=== PATIENT | male | born 1990 | race African-American/Black ===

== ENCOUNTER 2019-08-26 02:18 | Inpatient (IN) | payer BC ==
[~2019-08-26] VITALS: Ht 180.3 cm; Wt 99.8 kg
[2019-08-26 02:36] LABS: BASO # 0.1 x10^3/uL (0.0-0.2); BASO % 0 % (0-3); EOS # 0.2 x10^3/uL (0.0-0.7); EOS % 1 % (0-3); HEMATOCRIT 40.6 % (39.0-53.0); HEMOGLOBIN 13.7 g/dL (13.0-17.5); LYMPH # 1.9 x10^3/uL (1.0-4.8); LYMPH % 8 % (24-48); MEAN CORPUSCULAR HEMOGLOBIN 30 pg (25-35); MEAN CORPUSCULAR HGB CONC 34 g/dL (31-37); MEAN CORPUSCULAR VOLUME 88 fL (79-100); MONO # 1.6 x10^3/uL (0.0-1.1); MONO % 7 % (0-9); NEUT # 18.8 x10^3/uL (1.8-7.7); NEUT % 84 % (31-73); PLATELET COUNT 266 x10^3/uL (140-400); RED BLOOD COUNT 4.62 x10^6/uL (4.30-5.70); RED CELL DISTRIBUTION WIDTH 13.1 % (11.5-14.5); WHITE BLOOD COUNT 22.5 x10^3/uL (4.0-11.0)
[2019-08-26] MEDS: IBUPROFEN 100 MG/5 ML ORAL.SUSP. PO ONE ×2 (02:55→03:32)
[2019-08-26 02:58] LABS: % BANDS 2 % (0-9); % LYMPHS 9 % (24-48); % MONOS 2 % (0-10); % SEGS 87 % (35-66); PLT ESTIMATE ADEQUATE (ADEQUATE); TOXIC GRANULATION SLIGHT; TOXIC VACUOLATION SLIGHT
[2019-08-26] MEDS ORDERED: cefTRIAXone IV Push 1 GM VIAL. IVP ONE (03:00)
[2019-08-26] MEDS ORDERED: diphenhydrAMINE 50 MG/ML VIAL IVP ONE (03:00)
[2019-08-26] MEDS ORDERED: methylPREDNISolone SOD SUCC PF 125 MG/2 ML VIAL. IV ONE (03:00)
[2019-08-26 03:18] LABS: INFLUENZA A PATIENT NEGATIVE (NEGATIVE); INFLUENZA B PATIENT NEGATIVE (NEGATIVE)
[2019-08-26 03:24] LABS: CALCIUM 9.2 mg/dL (8.5-10.1); CREATININE 1.1 mg/dL (0.7-1.3); GFR 95.8; POTASSIUM 3.9 mmol/L (3.5-5.1)
[2019-08-26 03:31] LABS: ALBUMIN 4.3 g/dL (3.4-5.0); DIRECT BILIRUBIN 0.2 mg/dL (0.0-0.2); TOTAL BILIRUBIN 0.6 mg/dL (0.2-1.0); TOTAL PROTEIN 7.9 g/dL (6.4-8.2)
[2019-08-26] MEDS ORDERED: KETOROLAC 30 MG/ML VIAL. IVP ONE (04:00)
[2019-08-26] MEDS ORDERED: LIDO:MAALOX 1:1 20 ML SINGLE DOSE. SWSW ONE (04:00)
[2019-08-26] MEDS ORDERED: IV NORMAL SALINE 1000ML BAG 1,000 ML IV ONE (04:00)
--- NOTE | 2019-08-26 04:42 | PHYS DOC ---
Past Medical History Past Medical History: No Pertinent History Past Surgical History: No Surgical History Alcohol Use: Occasionally Drug Use: None Adult General Chief Complaint Chief Complaint: SORE THROAT HPI HPI Patient is a 28-year-old male who presents with complaint of severe sore throat that started at about 10 PM. Patient states that he feels like his throat is closing up on him and he has been choking on a saliva. He indicates that he has had some vomiting as well. Patient does admit to feeling very anxious due to feeling like he is not able to breathe. Patient also is noted to have fever. He denies any abdominal pain.[] Review of Systems Review of Systems Constitutional: Positive fever and chills [] HENT: [place] of sore throat [] Respiratory: [place] of shortness of breath [] Cardiovascular: No additional information not addressed in HPI [] GI: Denies abdominal pain. Complains of nausea and vomiting without diarrhea [] Integument: Denies rash or skin lesions [] Neurologic: Denies headache, focal weakness or sensory changes [] All other systems were reviewed and found to be within normal limits, except as documented in this note. Current Medications Current Medications Current Medications Medications (Trade) Dose Ordered Sig/Vincent Start Time Stop Time Status Last Admin Dose Admin Ceftriaxone Sodium (Rocephin) 1 gm 1X ONCE 08/26/19 03:00 08/26/19 03:01 DC 08/26/19 02:57 1 GM Diphenhydramine HCl (Benadryl) 50 mg 1X ONCE 08/26/19 03:00 08/26/19 03:01 DC 08/26/19 02:56 50 MG Ibuprofen (Children'S Motrin) 600 mg 1X ONCE 08/26/19 03:00 08/26/19 03:01 DC Ketorolac Tromethamine (Toradol 30mg Vial) 30 mg 1X ONCE 08/26/19 04:00 08/26/19 04:01 DC 08/26/19 03:34 30 MG Lorazepam (Ativan Inj) 1 mg 1X ONCE 08/26/19 04:00 08/26/19 04:01 DC Methylprednisolone Sodium Succinate (SOLU-Medrol 125MG VIAL) 125 mg 1X ONCE 08/26/19 03:00 08/26/19 03:01 DC 08/26/19 02:55 125 MG Multi-Ingredient Mouthwash/Gargle (Gi Cocktail) 20 ml 1X ONCE 08/26/19 04:00 08/26/19 04:01 DC 08/26/19 03:33 20 ML Sodium Chloride 1,000 ml @ 1,000 mls/hr 1X ONCE 08/26/19 04:00 08/26/19 04:59 DC 08/26/19 04:02 1,000 MLS/HR Allergies Allergies Allergies Coded Allergies Type Severity Reaction Last Updated Verified No Known Drug Allergies 08/26/19 No Physical Exam Physical Exam Constitutional: Well developed, well nourished, non-toxic appearance. [] HENT: Normocephalic, atraumatic, bilateral external ears normal, with pharyngeal erythema but no exudates. [] Eyes: PERRLA, EOMI, conjunctiva normal, no discharge. [] Neck: Normal range of motion, no tenderness, supple, with anterior cervical ly mphadenopathy. [] Cardiovascular: Tachycardic rate with regular rhythm[] Lungs & Thorax: Bilateral breath sounds clear to auscultation [] Abdomen: Bowel sounds normal, soft, no tenderness. [] Skin: Warm, dry, no erythema, no rash. [] Extremities: No tenderness, no cyanosis, no clubbing, ROM intact, no edema. [] Neurologic: Alert and oriented X 3, no focal deficits noted. [] Psychologic: Severely anxious. [] Current Patient Data Vital Signs Vital Signs Date Time Temp Pulse Resp B/P (MAP) Pulse Ox O2 Delivery O2 Flow Rate FiO2 08/26/19 04:30 101 16 107/56 (73) 98 Room Air 08/26/19 04:00 98.3 98.3 Lab Values Laboratory Tests Test 08/26/19 02:30 08/26/19 02:48 08/26/19 03:07 08/26/19 04:43 White Blood Count 22.5 x10^3/uL (4.0-11.0) H Red Blood Count 4.62 x10^6/uL (4.30-5.70) Hemoglobin 13.7 g/dL (13.0-17.5) Hematocrit 40.6 % (39.0-53.0) Mean Corpuscular Volume 88 fL (79-100) Mean Corpuscular Hemoglobin 30 pg (25-35) Mean Corpuscular Hemoglobin Concent 34 g/dL (31-37) Red Cell Distribution Width 13.1 % (11.5-14.5) Platelet Count 266 x10^3/uL (140-400) Neutrophils (%) (Auto) 84 % (31-73) H Lymphocytes (%) (Auto) 8 % (24-48) L Monocytes (%) (Auto) 7 % (0-9) Eosinophils (%) (Auto) 1 % (0-3) Basophils (%) (Auto) 0 % (0-3) Neutrophils # (Auto) 18.8 x10^3/uL (1.8-7.7) H Lymphocytes # (Auto) 1.9 x10^3/uL (1.0-4.8) Monocytes # (Auto) 1.6 x10^3/uL (0.0-1.1) H Eosinophils # (Auto) 0.2 x10^3/uL (0.0-0.7) Basophils # (Auto) 0.1 x10^3/uL (0.0-0.2) Segmented Neutrophils % 87 % (35-66) H Band Neutrophils % 2 % (0-9) Lymphocytes % 9 % (24-48) L Monocytes % 2 % (0-10) Toxic Granulation Slight Toxic Vacuolation Slight Platelet Estimate Adequate (ADEQUATE) Influenza Type A Antigen Negative (NEGATIVE) Influenza Type B Antigen Negative (NEGATIVE) Sodium Level 140 mmol/L (136-145) Potassium Level 3.9 mmol/L (3.5-5.1) Chloride Level 103 mmol/L (98-107) Carbon Dioxide Level 27 mmol/L (21-32) Anion Gap 10 (6-14) Blood Urea Nitrogen 13 mg/dL (8-26) Creatinine 1.1 mg/dL (0.7-1.3) Estimated GFR (Cockcroft-Gault) 95.8 Glucose Level 114 mg/dL (70-99) H Calcium Level 9.2 mg/dL (8.5-10.1) Total Bilirubin 0.6 mg/dL (0.2-1.0) Direct Bilirubin 0.2 mg/dL (0.0-0.2) Aspartate Amino Transferase (AST) 20 U/L (15-37) Alanine Aminotransferase (ALT) 24 U/L (16-63) Alkaline Phosphatase 57 U/L (46-116) Total Protein 7.9 g/dL (6.4-8.2) Albumin 4.3 g/dL (3.4-5.0) Urine Collection Type Unknown Urine Color Yellow Urine Clarity Clear Urine pH 8.0 Urine Specific [place] 1.025 Urine Protein Negative mg/dL (NEG-TRACE) Urine Glucose (UA) Negative mg/dL (NEG) Urine Ketones (Stick) Negative mg/dL (NEG) Urine Blood Negative (NEG) Urine Nitrite Negative (NEG) Urine Bilirubin Negative (NEG) Urine Urobilinogen Dipstick 1.0 mg/dL (0.2 mg/dL) Urine Leukocyte Esterase Negative (NEG) Urine RBC 3-5 /HPF (0-2) Urine WBC 5-10 /HPF (0-4) Urine Squamous Epithelial Cells Few /LPF Urine Bacteria 0 /HPF (0-FEW) Urine Mucus Slight /LPF Laboratory Tests 08/26/19 02:30 Laboratory Tests 08/26/19 03:07 EKG EKG [] Radiology/Procedures Radiology/Procedures [] Course & Med Decision Making Course & Med Decision Making Pertinent Labs and Imaging studies reviewed. (See chart for details) [] Dragon Disclaimer Dragon Disclaimer This electronic medical record was generated, in whole or in part, using a voice recognition dictation system. Departure Departure Impression: Primary Impression: Fever Additional Impressions: Leukocytosis Tonsillitis Disposition: ADMITTED INPATIENT Admitting Physician: MIKEY (Dr Gibbons) Condition: IMPROVED Referrals: NO PCP (PCP) Problem Qualifiers Primary Impression: Fever Fever type: unspecified Qualified Codes: R50.9 - Fever, unspecified Additional Impressions: Leukocytosis Leukocytosis type: unspecified Qualified Codes: D72.829 - Elevated white blood cell count, unspecified KEVIN CARABALLO Jr. DO Aug 26, 2019 04:42
[2019-08-26 04:50] LABS: BILIRUBIN,URINE NEGATIVE (NEG); CLARITY,URINE CLEAR; COLOR,URINE YELLOW; NITRITE,URINE NEGATIVE (NEG); PROTEIN,URINE NEGATIVE (NEG-TRACE)
[2019-08-26 04:57] LABS: SQUAMOUS EPITHELIAL CELL,UR FEW /LPF
--- NOTE | 2019-08-26 04:57 | RAD ---
CHEST AP ONLY History: Fever Comparison: None. Findings: No consolidation or pleural effusion. Normal heart size. Impression: 1. No acute cardiopulmonary process. Electronically signed by: Darryl Callejas DO (08/26/2019 4:54 AM) [facility]
[2019-08-26 05:00] LABS: BACTERIA,URINE 0 /HPF (0-FEW)
[2019-08-26] MEDS ORDERED: ONDANSETRON PF 4 MG/2 ML VIAL. IV PRN (05:45)
[2019-08-26] MEDS ORDERED: ACETAMINOPHEN 325 MG TABLET. PO PRN (05:45)
[2019-08-26] MEDS: IV NORMAL SALINE 1000ML BAG 1,000 ML IV SCH ×3 (06:00→23:18)
[2019-08-26 07:00] VITALS: BP 129/57
--- NOTE | 2019-08-26 08:49 | PDOC1 ---
History and Physical Date of Admission Date of Admission DATE: 08/26/19 TIME: 08:49 Identification/Chief Complaint Chief Complaint Sore throat Source Source: Patient History of Present Illness History of Present Illness Mr Nance 28 yo male with no PMHx who presents with complaint of severe sore throat that started at about 10 PM. Patient states that he feels like his throat is closing up on him and he has been choking on a saliva. He indicates that he has had some vomiting as well and has had some hemoptysis. Patient does admit to feeling very anxious due to feeling like he is not able to breathe and cannot even swallow liquids. Patient also is noted to have fever. He denies any abdominal pain. He has 3 young children at home, works for the [employer], some sick contacts at work. He smokes a bit, drinks little, and occasionally uses MJ, but does not vape. His significant other notes he has vocal changes as well. CXR was clear in ED, however had fever 102.4F, HR 117, WBC of 22.5 and RR of 2 6/min. He improved only slightly after steroid administration and was called for admission for further treatment. Past Medical History Cardiovascular: No pertinent hx Pulmonary: No pertinent hx GI: No pertinent hx Heme/Onc: No pertinent hx Hepatobiliary: No pertinent hx Psych: No pertinent hx Rheumatologic: No pertinent hx Infectious disease: No pertinent hx ENT: No pertinent hx Renal/: No pertinent hx Endocrine: No pertinent hx Dermatology: No pertinent hx Past Surgical History Past Surgical History: No pertinent history Family History Family History: Hypertension Social History Smoke: <1 pack per day ALCOHOL: rare Drugs: Marijuana Current Problem List Problem List Problems Medical Problems: (1) Fever Status: Acute (2) Leukocytosis Status: Acute (3) Tonsillitis Status: Acute Current Medications Current Medications Current Medications Diphenhydramine HCl (Benadryl) 50 mg 1X ONCE IVP Last administered on 08/26/19at 02:56; Start 08/26/19 at 03:00; Stop 08/26/19 at 03:01; Status DC Methylprednisolone Sodium Succinate (SOLU-Medrol 125MG VIAL) 125 mg 1X ONCE IV Last administered on 08/26/19at 02:55; Start 08/26/19 at 03:00; Stop 08/26/19 at 03:01; Status DC Lorazepam (Ativan Inj) 1 mg 1X ONCE IVP Last administered on 08/26/19at 02:56; Start 08/26/19 at 03:00; Stop 08/26/19 at 03:01; Status DC Ceftriaxone Sodium (Rocephin) 1 gm 1X ONCE IVP Last administered on 08/26/19at 02:57; Start 08/26/19 at 03:00; Stop 08/26/19 at 03:01; Status DC Ibuprofen (Children'S Motrin) 600 mg 1X ONCE PO ; Start 08/26/19 at 03:00; Stop 08/26/19 at 03:01; Status DC Ketorolac Tromethamine (Toradol 30mg Vial) 30 mg 1X ONCE IVP Last administered on 08/26/19at 03:34; Start 08/26/19 at 04:00; Stop 08/26/19 at 04:01; Status DC Multi-Ingredient Mouthwash/Gargle (Gi Cocktail) 20 ml 1X ONCE SWSW Last administered on 08/26/19at 03:33; Start 08/26/19 at 04:00; Stop 08/26/19 at 04:01; Status DC Sodium Chloride 1,000 ml @ 1,000 mls/hr 1X ONCE IV Last administered on 08/26/19at 04:02; Start 08/26/19 at 04:00; Stop 08/26/19 at 04:59; Status DC Lorazepam (Ativan Inj) 1 mg 1X ONCE IVP ; Start 08/26/19 at 04:00; Stop 08/26/19 at 04:01; Status DC Ondansetron HCl (Zofran) 4 mg PRN Q8HRS PRN IV NAUSEA/VOMITING 1ST CHOICE; Start 08/26/19 at 05:45; Stop 08/27/19 at 05:44 Morphine Sulfate (Morphine Sulfate) 2 mg PRN Q2HR PRN IV SEVERE PAIN 7-10; Start 08/26/19 at 05:45; Stop 08/27/19 at 05:44 Sodium Chloride 1,000 ml @ 125 mls/hr Q8H IV ; Start 08/26/19 at 06:00; Stop 08/27/19 at 05:59 Acetaminophen (Tylenol) 650 mg PRN Q4HRS PRN PO FEVER; Start 08/26/19 at 05:45; Stop 08/27/19 at 05:44 Allergies Allergies: Coded Allergies: No Known Drug Allergies (Unverified , 08/26/19) ROS General: YES: Fatigue, Malaise; No: Chills, Night Sweats, Appetite, Other PSYCHOLOGICAL ROS: No: Anxiety, Behavioral Disorder, Concentration difficultie, Decreased libido, Depression, Disorientation, Hallucinations, Hostility, Irritablity, Memory difficulties, Mood Swings, Obsessive thoughts, Physical abuse, Sexual abuse, Sleep disturbances, Suicidal ideation, Other Eyes: No Blurry vision, No Decreased vision, No Double vision, No Dry eyes, No Excessive tearing, No Eye Pain, No Itchy Eyes, No Loss of vision, No Photophobia, No Scotomata, No Uses contacts, No Uses glasses, No Other HEENT: YES: Sore Throat, Vocal changes; No: Heacaches, Visual Changes, Hearing change, Nasal congestion, Nasal discharge, Oral lesions, Sinus pain, Epistaxis, Sneezing, Snoring, Tinnitus, Vertigo, Other ALLERGY AND IMMUNOLOGY: No: Hives, Insect Bite Sensitivity, Itchy/Watery Eyes, Nasal Congestion, Post Nasal Drip, Seasonal Allergies, Other Hematological and Lymphatic: No: Bleeding Problems, Blood Clots, Blood Transfusions, Brusing, Night Sweats, Pallor, Swollen Lymph Nodes, Other ENDOCRINE: No: Breast Changes, Galactorrhea, Hair Pattern Changes, Hot Flashes, Malaise/lethargy, Mood Swings, Palpitations, Polydipsia/polyuria, Skin Changes, Temperature Intolerance, Unexpected Weight Changes, Other Breast: No New/Changing Breast Lumps, No Nipple changes, No Nipple discharge, No Other Respiratory: YES: Shortness of breath, SOB with excertion; No: Cough, Hemoptysis, Orthopnea, Pleuritic Pain, Sputum Changes, Stridor, Tachypnea, Wheezing, Other Cardiovascular: No Chest Pain, No Palpitations, No Orthopnea, No Paroxysmal Noc. Dyspnea, No Edema, No Lt Headedness, No Other Gastrointestinal: Yes Vomiting; No Nausea, No Abdominal Pain, No Diarrhea, No Constipation, No Melena, No Hematochezia, No Other Genitourinary: No Dysuria, No Frequency, No Incontinence, No Hematuria, No Retention, No Discharge, No Urgency, No Pain, No Flank Pain, No Other, No , No , No , No , No , No , No Musculoskeletal: No Gait Disturbance, No Joint Pain, No Joint Stiffness, No Joint Swelling, No Muscle Pain, No Muscular Weakness, No Pain In:, No Swelling In:, No Other Neurological: No Behavorial Changes, No Bowel/Bladder ControlChng, No Confusion, No Dizziness, No Gait Disturbance, No Headaches, No Impaired Coord/balance, No Memory Loss, No Numbness/Tingling, No Seizures, No Speech Problems, No Tremors, No Visual Changes, No Weakness, No Other Skin: No Dry Skin, No Eczema, No Hair Changes, No Lumps, No Mole Changes, No Mottling, No Nail Changes, No Pruritus, No Rash, No Skin Lesion Changes, No Other, No Acne Physical Exam General: Alert, Oriented X3, Cooperative, No acute distress HEENT: Atraumatic, PERRLA, EOMI, Mucous membr. moist/pink, Other (Enlarged epliglottis, inflamed. Tonsils not swollen, posterior pharyngeal erythema, Bilateral cervical adenopathy) Lungs: Other (Tracheal breath sounds raspy) Abdomen: Normal bowel sounds, Soft, No tenderness, No hepatosplenomegaly, No masses Rectal Exam: not examined Extremities: No clubbing, No cyanosis, No edema, Normal pulses, No tenderness/swelling Skin: No rashes, No breakdown, No significant lesion Neuro: Normal gait, Normal speech, Strength at 5/5 X4 ext, Normal tone, Sensation intact, Cranial nerves 3-12 NL, Reflexes 2+ Psych/Mental Status: Mental status NL, Mood NL Vitals Vitals Vital Signs Date Time Temp Pulse Resp B/P (MAP) Pulse Ox O2 Delivery O2 Flow Rate FiO2 08/26/19 07:00 97.5 93 18 129/57 (81) 98 Room Air 97.5 Labs Labs Laboratory Tests Test 08/26/19 02:30 08/26/19 02:48 08/26/19 03:07 08/26/19 04:43 White Blood Count 22.5 x10^3/uL (4.0-11.0) Red Blood Count 4.62 x10^6/uL (4.30-5.70) Hemoglobin 13.7 g/dL (13.0-17.5) Hematocrit 40.6 % (39.0-53.0) Mean Corpuscular Volume 88 fL (79-100) Mean Corpuscular Hemoglobin 30 pg (25-35) Mean Corpuscular Hemoglobin Concent 34 g/dL (31-37) Red Cell Distribution Width 13.1 % (11.5-14.5) Platelet Count 266 x10^3/uL (140-400) Neutrophils (%) (Auto) 84 % (31-73) Lymphocytes (%) (Auto) 8 % (24-48) Monocytes (%) (Auto) 7 % (0-9) Eosinophils (%) (Auto) 1 % (0-3) Basophils (%) (Auto) 0 % (0-3) Neutrophils # (Auto) 18.8 x10^3/uL (1.8-7.7) Lymphocytes # (Auto) 1.9 x10^3/uL (1.0-4.8) Monocytes # (Auto) 1.6 x10^3/uL (0.0-1.1) Eosinophils # (Auto) 0.2 x10^3/uL (0.0-0.7) Basophils # (Auto) 0.1 x10^3/uL (0.0-0.2) Segmented Neutrophils % 87 % (35-66) Band Neutrophils % 2 % (0-9) Lymphocytes % 9 % (24-48) Monocytes % 2 % (0-10) Toxic Granulation Slight Toxic Vacuolation Slight Platelet Estimate Adequate (ADEQUATE) Group A Streptococcus Rapid Negative (NEGATIVE) Influenza Type A Antigen Negative (NEGATIVE) Influenza Type B Antigen Negative (NEGATIVE) Sodium Level 140 mmol/L (136-145) Potassium Level 3.9 mmol/L (3.5-5.1) Chloride Level 103 mmol/L (98-107) Carbon Dioxide Level 27 mmol/L (21-32) Anion Gap 10 (6-14) Blood Urea Nitrogen 13 mg/dL (8-26) Creatinine 1.1 mg/dL (0.7-1.3) Estimated GFR (Cockcroft-Gault) 95.8 Glucose Level 114 mg/dL (70-99) Calcium Level 9.2 mg/dL (8.5-10.1) Total Bilirubin 0.6 mg/dL (0.2-1.0) Direct Bilirubin 0.2 mg/dL (0.0-0.2) Aspartate Amino Transf (AST/SGOT) 20 U/L (15-37) Alanine Aminotransferase (ALT/SGPT) 24 U/L (16-63) Alkaline Phosphatase 57 U/L (46-116) Total Protein 7.9 g/dL (6.4-8.2) Albumin 4.3 g/dL (3.4-5.0) Urine Collection Type Unknown Urine Color Yellow Urine Clarity Clear Urine pH 8.0 Urine Specific [place] 1.025 Urine Protein Negative mg/dL (NEG-TRACE) Urine Glucose (UA) Negative mg/dL (NEG) Urine Ketones (Stick) Negative mg/dL (NEG) Urine Blood Negative (NEG) Urine Nitrite Negative (NEG) Urine Bilirubin Negative (NEG) Urine Urobilinogen Dipstick 1.0 mg/dL (0.2 mg/dL) Urine Leukocyte Esterase Negative (NEG) Urine RBC 3-5 /HPF (0-2) Urine WBC 5-10 /HPF (0-4) Urine Squamous Epithelial Cells Few /LPF Urine Bacteria 0 /HPF (0-FEW) Urine Mucus Slight /LPF Laboratory Tests Test 08/26/19 02:30 08/26/19 02:48 08/26/19 03:07 08/26/19 04:43 White Blood Count 22.5 x10^3/uL (4.0-11.0) Red Blood Count 4.62 x10^6/uL (4.30-5.70) Hemoglobin 13.7 g/dL (13.0-17.5) Hematocrit 40.6 % (39.0-53.0) Mean Corpuscular Volume 88 fL (79-100) Mean Corpuscular Hemoglobin 30 pg (25-35) Mean Corpuscular Hemoglobin Concent 34 g/dL (31-37) Red Cell Distribution Width 13.1 % (11.5-14.5) Platelet Count 266 x10^3/uL (140-400) Neutrophils (%) (Auto) 84 % (31-73) Lymphocytes (%) (Auto) 8 % (24-48) Monocytes (%) (Auto) 7 % (0-9) Eosinophils (%) (Auto) 1 % (0-3) Basophils (%) (Auto) 0 % (0-3) Neutrophils # (Auto) 18.8 x10^3/uL (1.8-7.7) Lymphocytes # (Auto) 1.9 x10^3/uL (1.0-4.8) Monocytes # (Auto) 1.6 x10^3/uL (0.0-1.1) Eosinophils # (Auto) 0.2 x10^3/uL (0.0-0.7) Basophils # (Auto) 0.1 x10^3/uL (0.0-0.2) Segmented Neutrophils % 87 % (35-66) Band Neutrophils % 2 % (0-9) Lymphocytes % 9 % (24-48) Monocytes % 2 % (0-10) Toxic Granulation Slight Toxic Vacuolation Slight Platelet Estimate Adequate (ADEQUATE) Group A Streptococcus Rapid Negative (NEGATIVE) Influenza Type A Antigen Negative (NEGATIVE) Influenza Type B Antigen Negative (NEGATIVE) Sodium Level 140 mmol/L (136-145) Potassium Level 3.9 mmol/L (3.5-5.1) Chloride Level 103 mmol/L (98-107) Carbon Dioxide Level 27 mmol/L (21-32) Anion Gap 10 (6-14) Blood Urea Nitrogen 13 mg/dL (8-26) Creatinine 1.1 mg/dL (0.7-1.3) Estimated GFR (Cockcroft-Gault) 95.8 Glucose Level 114 mg/dL (70-99) Calcium Level 9.2 mg/dL (8.5-10.1) Total Bilirubin 0.6 mg/dL (0.2-1.0) Direct Bilirubin 0.2 mg/dL (0.0-0.2) Aspartate Amino Transf (AST/SGOT) 20 U/L (15-37) Alanine Aminotransferase (ALT/SGPT) 24 U/L (16-63) Alkaline Phosphatase 57 U/L (46-116) Total Protein 7.9 g/dL (6.4-8.2) Albumin 4.3 g/dL (3.4-5.0) Urine Collection Type Unknown Urine Color Yellow Urine Clarity Clear Urine pH 8.0 Urine Specific [place] 1.025 Urine Protein Negative mg/dL (NEG-TRACE) Urine Glucose (UA) Negative mg/dL (NEG) Urine Ketones (Stick) Negative mg/dL (NEG) Urine Blood Negative (NEG) Urine Nitrite Negative (NEG) Urine Bilirubin Negative (NEG) Urine Urobilinogen Dipstick 1.0 mg/dL (0.2 mg/dL) Urine Leukocyte Esterase Negative (NEG) Urine RBC 3-5 /HPF (0-2) Urine WBC 5-10 /HPF (0-4) Urine Squamous Epithelial Cells Few /LPF Urine Bacteria 0 /HPF (0-FEW) Urine Mucus Slight /LPF Images Images CXR - No consolidation or pleural effusion. Normal heart size. Impression: 1. No acute cardiopulmonary process. VTE Prophylaxis Ordered VTE Prophylaxis Devices: No VTE Pharmacological Prophylaxi: No Assessment/Plan Assessment/Plan A/P: Shortness of breath - sounds like tracheitis, epliglottis given his dysphagia and dysphonia. Needs prn racemic epinephrine, nebs, steroids, empiric antibi otics to cover for strep, h. influenza, etc. though this might be viral. Will get CT neck stat to check for abscess. consult ID [email or web address] - will check CT as above. Have [employer]ELOPER evaluate, though this is likely epiglottitis Dysphonia - as above Sepsis - likely 2/2 epliglottitis, will have empiric antibiotics, fluids given FEN - General diet PPX - SCDs FULL CODE Dispo - inpatient for sepsis, life-threatening epiglottitis. BONITA GUIDO MD Aug 26, 2019 08:49
[2019-08-26 10:19] LABS: MONONUCLEOSIS PATIENT NEGATIVE (NEGATIVE)
[2019-08-26 11:00] VITALS: BP 132/70
[2019-08-26] MEDS ORDERED: IOHEXOL 300 MG/ML 100ML VIAL. IV ONE (11:30)
[2019-08-26] MEDS ORDERED: CONTRAST GIVEN. MC PRN (11:30)
--- NOTE | 2019-08-26 12:52 | RAD ---
Examination: CT SOFT TISSUE NECK W/CONTRAST History: Swelling, difficulty swallowing Comparison/Correlation: None Findings: Axial images of the neck were obtained following IV contrast. Sagittal and coronal reformatted images were provided. Prominent, symmetric adenoidal soft tissues noted. Diffuse symmetric thickening of the epiglottis is present. Epiglottis thickness of up to 0.8 cm anteroposterior is present. True and false cords are symmetric. Diffusely thickened symmetric false cords noted. Parotid and submandibular glands are unremarkable. No significant chronic paranasal sinusitis. Mastoid air cells are clear. Thyroid gland is normal. No enlarged lymph nodes. No loculated collections. The visualized trachea and esophagus are unremarkable. Significant dental caries involvement of the right upper third molar posteriorly noted. Absence of a few crowns noted. Temporomandibular joints are unremarkable. Impression: Significant diffuse thickening of the epiglottis and false cords. No loculated collection. No definite inflammatory stranding. No enlarged cervical lymph nodes. Carious involvement of the right upper third molar. PQRS Compliance Statement: One or more of the following individualized dose reduction techniques were utilized for this examination: 1. Automated exposure control 2. Adjustment of the mA and/or kV according to patient size 3. Use of iterative reconstruction technique Electronically signed by: Bridger Cooper MD (08/26/2019 12:49 PM) [facility]
[2019-08-26] MEDS ORDERED: cefTRIAXone IV Push 1 GM VIAL. IVP SCH ×2 (14:00→21:00)
[2019-08-26 15:00] VITALS: BP 126/77
[2019-08-26] MEDS: methylPREDNISolone SOD SUCC PF 40 MG/ML VIAL. IV SCH ×2 (15:10→21:09)
[2019-08-26] MEDS: DOXYCYCLINE HYCLATE 100 MG in IV DEXTROSE 5% 100ML 100 ML IV SCH ×2 (15:10→23:15)
[2019-08-26] MEDS: MORPHINE SULFATE 2 MG/ML VIAL. IV PRN ×3 (15:10→19:35)
[2019-08-26] MEDS: IPRATRPIUM/ALBUTEROL 0.5/2.5MG 3 ML NEBU. NEB SCH ×2 (15:35→20:08)
[2019-08-26] MEDS ORDERED: RACEPINEPHRINE 2.25% 0.5 ML NEBU. NEB ONE (16:30)
[2019-08-26 19:00] VITALS: BP 107/57
[2019-08-26] MEDS: BUDESONIDE 0.5 MG/2 ML NEBU. NEB SCH (20:08)
[2019-08-26] MEDS: LACTOBACILLUS RHAMNOSUS GG 1 CAPSULE. PO SCH (21:09)
[2019-08-26 23:00] VITALS: BP 96/47
[2019-08-27] MEDS: MORPHINE SULFATE 2 MG/ML VIAL. IV PRN (02:50)
[2019-08-27 03:00] VITALS: BP 114/68
[2019-08-27] MEDS: methylPREDNISolone SOD SUCC PF 40 MG/ML VIAL. IV SCH (06:21)
[2019-08-27 07:00] VITALS: BP 120/69
[2019-08-27] MEDS: IPRATRPIUM/ALBUTEROL 0.5/2.5MG 3 ML NEBU. NEB SCH (07:17)
[2019-08-27] MEDS: BUDESONIDE 0.5 MG/2 ML NEBU. NEB SCH (07:18)
[2019-08-27] MEDS: LACTOBACILLUS RHAMNOSUS GG 1 CAPSULE. PO SCH (07:47)
[2019-08-27] MEDS: DOXYCYCLINE HYCLATE 100 MG in IV DEXTROSE 5% 100ML 100 ML IV SCH (07:48)
--- NOTE | 2019-08-27 10:34 | PDOC ---
PROGRESS NOTES Chief Complaint Chief Complaint A/P: Shortness of breath - sounds like tracheitis, epliglottis given his dysphagia and dysphonia. Needs prn racemic epinephrine, nebs, steroids, empiric antibiotics to cover for strep, h. influenza, etc. though this might be viral. Will get CT neck stat to check for abscess. consult ID Dysphagia - will check CT as above. Have FUR GRADER evaluate, though this is likely epiglottitis Dysphonia - as above Sepsis - likely 2/2 epliglottitis, will have empiric antibiotics, fluids given FEN - General diet PPX - SCDs FULL CODE Dispo - inpatient for sepsis, life-threatening epiglottitis. History of Present Illness History of Present Illness Mr Nance 28 yo male with no PMHx who presents with complaint of severe sore throat that started at about 10 PM. Patient states that he feels like his throat is closing up on him and he has been choking on a saliva. He indicates that he has had some vomiting as well and has had some hemoptysis. Patient does admit to feeling very anxious due to feeling like he is not able to breathe and cannot even swallow liquids. Patient also is noted to have fever. He denies any abdominal pain. He has 3 young children at home, works for the [employer], some sick contacts at work. He smokes a bit, drinks little, and occasionally uses MJ, but does not vape. His significant other notes he has vocal changes as well. CXR was clear in ED, however had fever 102.4F, HR 117, WBC of 22.5 and RR of 26/min. He improved only slightly after steroid administration and was called for admission for further treatment. CT neck confirms epiglottitis. Steroids, racemic epi, antibiotics. Consulted ID for further recommendations who agree with cefdinir, doxycycline, and prednisone on d/c with strict return instructions. Vitals Vitals Vital Signs Date Time Temp Pulse Resp B/P (MAP) Pulse Ox O2 Delivery O2 Flow Rate FiO2 08/27/19 07:28 Room Air 08/27/19 07:19 99 08/27/19 07:00 97.9 84 16 120/69 (86) 97.9 Physical Exam General: Alert, Oriented X3, Cooperative, No acute distress Abdomen: Normal bowel sounds, Soft, No tenderness, No hepatosplenomegaly, No masses Extremities: No clubbing, No cyanosis, No edema, Normal pulses, No tenderness/swelling Skin: No rashes, No breakdown, No significant lesion Assessment and Plan Assessmemt and Plan Problems Medical Problems: (1) Fever Status: Acute (2) Leukocytosis Status: Acute (3) Tonsillitis Status: Acute Comment Review of Relevant I have reviewed the following items edilson (where applicable) has been applied. Labs Laboratory Tests Test 08/26/19 02:30 08/26/19 02:48 08/26/19 03:07 08/26/19 04:43 White Blood Count 22.5 x10^3/uL (4.0-11.0) Red Blood Count 4.62 x10^6/uL (4.30-5.70) Hemoglobin 13.7 g/dL (13.0-17.5) Hematocrit 40.6 % (39.0-53.0) Mean Corpuscular Volume 88 fL (79-100) Mean Corpuscular Hemoglobin 30 pg (25-35) Mean Corpuscular Hemoglobin Concent 34 g/dL (31-37) Red Cell Distribution Width 13.1 % (11.5-14.5) Platelet Count 266 x10^3/uL (140-400) Neutrophils (%) (Auto) 84 % (31-73) Lymphocytes (%) (Auto) 8 % (24-48) Monocytes (%) (Auto) 7 % (0-9) Eosinophils (%) (Auto) 1 % (0-3) Basophils (%) (Auto) 0 % (0-3) Neutrophils # (Auto) 18.8 x10^3/uL (1.8-7.7) Lymphocytes # (Auto) 1.9 x10^3/uL (1.0-4.8) Monocytes # (Auto) 1.6 x10^3/uL (0.0-1.1) Eosinophils # (Auto) 0.2 x10^3/uL (0.0-0.7) Basophils # (Auto) 0.1 x10^3/uL (0.0-0.2) Segmented Neutrophils % 87 % (35-66) Band Neutrophils % 2 % (0-9) Lymphocytes % 9 % (24-48) Monocytes % 2 % (0-10) Toxic Granulation Slight Toxic Vacuolation Slight Platelet Estimate Adequate (ADEQUATE) Heterophil Agglutinins Negative (NEGATIVE) Group A Streptococcus Rapid Negative (NEGATIVE) Influenza Type A Antigen Negative (NEGATIVE) Influenza Type B Antigen Negative (NEGATIVE) Sodium Level 140 mmol/L (136-145) Potassium Level 3.9 mmol/L (3.5-5.1) Chloride Level 103 mmol/L (98-107) Carbon Dioxide Level 27 mmol/L (21-32) Anion Gap 10 (6-14) Blood Urea Nitrogen 13 mg/dL (8-26) Creatinine 1.1 mg/dL (0.7-1.3) Estimated GFR (Cockcroft-Gault) 95.8 Glucose Level 114 mg/dL (70-99) Calcium Level 9.2 mg/dL (8.5-10.1) Total Bilirubin 0.6 mg/dL (0.2-1.0) Direct Bilirubin 0.2 mg/dL (0.0-0.2) Aspartate Amino Transf (AST/SGOT) 20 U/L (15-37) Alanine Aminotransferase (ALT/SGPT) 24 U/L (16-63) Alkaline Phosphatase 57 U/L (46-116) Total Protein 7.9 g/dL (6.4-8.2) Albumin 4.3 g/dL (3.4-5.0) Urine Collection Type Unknown Urine Color Yellow Urine Clarity Clear Urine pH 8.0 Urine Specific [place] 1.025 Urine Protein Negative mg/dL (NEG-TRACE) Urine Glucose (UA) Negative mg/dL (NEG) Urine Ketones (Stick) Negative mg/dL (NEG) Urine Blood Negative (NEG) Urine Nitrite Negative (NEG) Urine Bilirubin Negative (NEG) Urine Urobilinogen Dipstick 1.0 mg/dL (0.2 mg/dL) Urine Leukocyte Esterase Negative (NEG) Urine RBC 3-5 /HPF (0-2) Urine WBC 5-10 /HPF (0-4) Urine Squamous Epithelial Cells Few /LPF Urine Bacteria 0 /HPF (0-FEW) Urine Mucus Slight /LPF Microbiology 08/26/19 Blood Culture - Preliminary, Resulted NO GROWTH AFTER 1 DAY Medications Current Medications Diphenhydramine HCl (Benadryl) 50 mg 1X ONCE IVP Last administered on 08/26/19at 02:56; Start 08/26/19 at 03:00; Stop 08/26/19 at 03:01; Status DC Methylprednisolone Sodium Succinate (SOLU-Medrol 125MG VIAL) 125 mg 1X ONCE IV Last administered on 08/26/19at 02:55; Start 08/26/19 at 03:00; Stop 08/26/19 at 03:01; Status DC Lorazepam (Ativan Inj) 1 mg 1X ONCE IVP Last administered on 08/26/19at 02:56; Start 08/26/19 at 03:00; Stop 08/26/19 at 03:01; Status DC Ceftriaxone Sodium (Rocephin) 1 gm 1X ONCE IVP Last administered on 08/26/19at 02:57; Start 08/26/19 at 03:00; Stop 08/26/19 at 03:01; Status DC Ibuprofen (Children'S Motrin) 600 mg 1X ONCE PO ; Start 08/26/19 at 03:00; Stop 08/26/19 at 03:01; Status DC Ketorolac Tromethamine (Toradol 30mg Vial) 30 mg 1X ONCE IVP Last administered on 08/26/19at 03:34; Start 08/26/19 at 04:00; Stop 08/26/19 at 04:01; Status DC Multi-Ingredient Mouthwash/Gargle (Gi Cocktail) 20 ml 1X ONCE SWSW Last administered on 08/26/19at 03:33; Start 08/26/19 at 04:00; Stop 08/26/19 at 04:01; Status DC Sodium Chloride 1,000 ml @ 1,000 mls/hr 1X ONCE IV Last administered on 08/26/19at 04:02; Start 08/26/19 at 04:00; Stop 08/26/19 at 04:59; Status DC Lorazepam (Ativan Inj) 1 mg 1X ONCE IVP ; Start 08/26/19 at 04:00; Stop 08/26/19 at 04:01; Status DC Ondansetron HCl (Zofran) 4 mg PRN Q8HRS PRN IV NAUSEA/VOMITING 1ST CHOICE; Start 08/26/19 at 05:45; Stop 08/27/19 at 05:44; Status DC Morphine Sulfate (Morphine Sulfate) 2 mg PRN Q2HR PRN IV SEVERE PAIN 7-10 Last administered on 08/27/19at 02:50; Start 08/26/19 at 05:45; Stop 08/27/19 at 05:44; Status DC Sodium Chloride 1,000 ml @ 125 mls/hr Q8H IV Last administered on 08/26/19at 23:18; Start 08/26/19 at 06:00; Stop 08/27/19 at 05:59; Status DC Acetaminophen (Tylenol) 650 mg PRN Q4HRS PRN PO FEVER; Start 08/26/19 at 05:45; Stop 08/27/19 at 05:44; Status DC Iohexol (Omnipaque 300 Mg/ml) 70 ml 1X ONCE IV Last administered on 08/26/19at 11:43; Start 08/26/19 at 11:30; Stop 08/26/19 at 11:31; Status DC Info (CONTRAST GIVEN -- Rx MONITORING) 1 each PRN DAILY PRN MC SEE COMMENTS; Start 08/26/19 at 11:30; Stop 08/28/19 at 11:29 Albuterol/ Ipratropium (Duoneb) 3 ml RTQID NEB Last administered on 08/27/19at 07:17; Start 08/26/19 at 16:00 Budesonide (Pulmicort) 0.5 mg RTBID NEB Last administered on 08/27/19at 07:18; Start 08/26/19 at 20:00 Methylprednisolone Sodium Succinate (SOLU-Medrol 40MG VIAL) 40 mg Q8HRS IV Last administered on 08/27/19at 06:21; Start 08/26/19 at 14:00 Ceftriaxone Sodium (Rocephin) 1 gm Q24H IVP ; Start 08/26/19 at 14:00; Status Cancel Doxycycline Hyclate 100 mg/ Dextrose 100 ml @ 50 mls/hr Q12HR IV Last administered on 08/27/19at 07:48; Start 08/26/19 at 14:00 Ceftriaxone Sodium (Rocephin) 1 gm Q24H IVP Last administered on 08/26/19at 21:08; Start 08/26/19 at 21:00 Lactobacillus Rhamnosus (Culturelle) 1 cap BID PO Last administered on 08/27/19 07:47; Start 08/26/19 at 21:00 Epinephrine (S2 Racepinephrine) 0.5 ml 1X PRN ONCE NEB Last administered on 08/26/19at 17:46; Start 08/26/19 at 16:30; Stop 08/26/19 at 16:31; Status DC Vitals/I & O Vital Sign - Last 24 Hours 08/26/19 08/26/19 08/26/19 08/26/19 11:00 15:00 15:10 15:26 Temp 97.9 98.2 97.9 98.2 Pulse 81 82 Resp 16 18 B/P (MAP) 132/70 (90) 126/77 (93) Pulse Ox 99 96 98 O2 Delivery Room Air Room Air Room Air Room Air 08/26/19 08/26/19 08/26/19 08/26/19 15:40 17:31 17:47 18:01 Pulse Ox 99 O2 Delivery Room Air Room Air Room Air Room Air 08/26/19 08/26/19 08/26/19 08/26/19 19:00 19:35 20:00 20:05 Temp 98.1 98.1 Pulse 90 Resp 18 B/P (MAP) 107/57 (74) Pulse Ox 96 O2 Delivery Room Air Room Air Room Air Room Air 08/26/19 08/26/19 08/27/19 08/27/19 20:12 23:00 02:50 03:00 Temp 98.2 97.6 98.2 97.6 Pulse 89 74 Resp 18 18 B/P (MAP) 96/47 (63) 114/68 (83) Pulse Ox 100 94 98 O2 Delivery Room Air Room Air Room Air Room Air 08/27/19 08/27/19 08/27/19 08/27/19 03:20 07:00 07:19 07:28 Temp 97.9 97.9 Pulse 84 Resp 16 B/P (MAP) 120/69 (86) Pulse Ox 97 99 O2 Delivery Room Air Room Air Room Air Room Air BONITA GUIDO MD Aug 27, 2019 10:34
[2019-08-27] MEDS ORDERED: PRED20TA PO (10:42)
[2019-08-27] MEDS ORDERED: DOXY100T PO (10:42)
[2019-08-27] MEDS ORDERED: CEFD300C PO (10:42)
[2019-08-27] MEDS ORDERED: predniSONE 20 MG TABLET PO SCH (11:00)
[2019-08-27] MEDS ORDERED: CEFDINIR 300 MG CAPSULE PO SCH (11:00)
--- NOTE | 2019-08-27 14:48 | CONS ---
DATE OF CONSULTATION: 08/27/2019 REFERRING PHYSICIAN: Dr. Clifton. REASON FOR CONSULTATION: Epiglottitis. HISTORY OF PRESENT ILLNESS: A 28-year-old male healthy without any significant medical problems, presented to the ER with complaints of severe throat, which started the night before. He has felt like his throat was closing upon him and had started choking on his saliva. He also had an episode of vomiting. He was feverish and started getting anxious, as he was not able to breathe. He was found to have a temperature of 102 with white count of 22,000. In the ED, sodium was 140, creatinine was within normal limits. UA was negative. He was given a dose of ceftriaxone, diphenhydramine, ibuprofen, ketorolac and steroids with mouthwash. He underwent a chest x-ray, which showed no acute cardiopulmonary process. He also had a CT of the soft tissue of the neck, which showed significant diffuse thickening of the epiglottitis and false cords. No loculated collection. No definite inflammatory stranding. No enlarged cervical lymph nodes caries involvement of the right upper third molar. The patient had some ear discomfort and pain, had some right-sided neck pain. He was started on Rocephin and doxycycline, was continued on IV methylprednisolone. Today, he feels much better. He denies any headache, nausea, vomiting, diarrhea, abdominal pain, difficulty swallowing, chest pain, chest pain with deep breathing, sore throat, ear pain, drainage, neck pain, symptoms, rash, or joint pain. The patient denies any sick contact at home. His and children are healthy. He works at [employer] and had some exposure at work prior to admission. PAST MEDICAL HISTORY: Nothing significant. CURRENT MEDICATION: Rocephin, doxycycline and steroids. PHYSICAL EXAMINATION: VITAL SIGNS: Temperature 97.9, pulse 84, respirations 16, blood pressure 120/69 and oxygen saturation 99% on room air. GENERAL: Alert and oriented x 3 male, in no acute distress, pleasant, cooperative. HEENT: Normocephalic, atraumatic, anicteric. No thrush. Oral mucosa moist. Mild tonsillar enlargement, right greater than the left, inflamed epiglottitis. No evidence of obstruction, mild right cervical lymphadenopathy. NECK: Supple, no JVD. LUNGS: Clear bilaterally. No wheezing. HEART: S1, S2. No gallops or murmurs. ABDOMEN: Soft, nontender, nondistended. EXTREMITIES: No edema, no cyanosis. DERMATOLOGIC: Warm, dry. No generalized rash. NEUROLOGIC: Alert and oriented x 3, grossly nonfocal. PSYCHIATRIC: Cooperative, appropriate mood and affect. MUSCULOSKELETAL: No joint swelling seen. LABORATORY DATA: WBC 22.5, hemoglobin 13.7, hematocrit 40.6, platelets 266 and neutrophil 84%. Sodium 140, potassium 3.9, chloride 103, bicarbonate 27, BUN 13, creatinine 1.1, glucose 114. LFTs within normal limits. UA negative. Monospot test negative. Group A strep negative. Influenza screen negative. IMAGIN. Chest x-ray, no acute abnormality. 2. Soft tissue neck CT as above. IMPRESSION: 1. Epiglottitis improved. 2. Leukocytosis secondary to above. 3. Sepsis secondary to above. 4. Shortness of breath, resolved. RECOMMENDATIONS: 1. Continue Rocephin and doxycycline. 2. Continue supportive care. 3. Maintain aspiration precaution. 4. Follow up labs and cultures. 5. Discussed with at bedside. Thank you, Dr. Clifton for consulting Infectious Disease to participate in this patient's care. If you have any questions, do not hesitate to contact me. ITZEL LANG MD DR: HENNY/nts JOB#: [id number] / [id number] CHRISTINE
[2019-08-27] MEDS ORDERED: DOXYCYCLINE HYCLATE 100 MG TABLET PO SCH (21:00)
--- NOTE | 2019-08-27 22:52 | PDOC3 ---
Discharge Summary Visit Information Date of Admission: Aug 26, 2019 Date of Discharge: Aug 27, 2019 Admitting Diagnosis: Dysphonia Final Diagnosis Problems Medical Problems: (1) Fever Status: Acute (2) Leukocytosis Status: Acute (3) Tonsillitis Status: Acute Brief Hospital Course Allergies Allergies Coded Allergies Type Severity Reaction Last Updated Verified No Known Drug Allergies 08/26/19 No Vital Signs Vital Signs Date Time Temp Pulse Resp B/P (MAP) Pulse Ox O2 Delivery O2 Flow Rate FiO2 08/27/19 07:28 Room Air 08/27/19 07:19 99 08/27/19 07:00 97.9 84 16 120/69 (86) 97.9 Lab Results Laboratory Tests Test 08/26/19 02:30 08/26/19 02:48 08/26/19 03:07 08/26/19 04:43 White Blood Count 22.5 x10^3/uL (4.0-11.0) Red Blood Count 4.62 x10^6/uL (4.30-5.70) Hemoglobin 13.7 g/dL (13.0-17.5) Hematocrit 40.6 % (39.0-53.0) Mean Corpuscular Volume 88 fL (79-100) Mean Corpuscular Hemoglobin 30 pg (25-35) Mean Corpuscular Hemoglobin Concent 34 g/dL (31-37) Red Cell Distribution Width 13.1 % (11.5-14.5) Platelet Count 266 x10^3/uL (140-400) Neutrophils (%) (Auto) 84 % (31-73) Lymphocytes (%) (Auto) 8 % (24-48) Monocytes (%) (Auto) 7 % (0-9) Eosinophils (%) (Auto) 1 % (0-3) Basophils (%) (Auto) 0 % (0-3) Neutrophils # (Auto) 18.8 x10^3/uL (1.8-7.7) Lymphocytes # (Auto) 1.9 x10^3/uL (1.0-4.8) Monocytes # (Auto) 1.6 x10^3/uL (0.0-1.1) Eosinophils # (Auto) 0.2 x10^3/uL (0.0-0.7) Basophils # (Auto) 0.1 x10^3/uL (0.0-0.2) Segmented Neutrophils % 87 % (35-66) Band Neutrophils % 2 % (0-9) Lymphocytes % 9 % (24-48) Monocytes % 2 % (0-10) Toxic Granulation Slight Toxic Vacuolation Slight Platelet Estimate Adequate (ADEQUATE) Cytomegalovirus IgG Antibody <0.60 U/mL (0.00-0.59) Cytomegalovirus IgM Antibody <30.0 AU/mL (0.0-29.9) Heterophil Agglutinins Negative (NEGATIVE) Group A Streptococcus Rapid Negative (NEGATIVE) Influenza Type A Antigen Negative (NEGATIVE) Influenza Type B Antigen Negative (NEGATIVE) Sodium Level 140 mmol/L (136-145) Potassium Level 3.9 mmol/L (3.5-5.1) Chloride Level 103 mmol/L (98-107) Carbon Dioxide Level 27 mmol/L (21-32) Anion Gap 10 (6-14) Blood Urea Nitrogen 13 mg/dL (8-26) Creatinine 1.1 mg/dL (0.7-1.3) Estimated GFR (Cockcroft-Gault) 95.8 Glucose Level 114 mg/dL (70-99) Calcium Level 9.2 mg/dL (8.5-10.1) Total Bilirubin 0.6 mg/dL (0.2-1.0) Direct Bilirubin 0.2 mg/dL (0.0-0.2) Aspartate Amino Transf (AST/SGOT) 20 U/L (15-37) Alanine Aminotransferase (ALT/SGPT) 24 U/L (16-63) Alkaline Phosphatase 57 U/L (46-116) Total Protein 7.9 g/dL (6.4-8.2) Albumin 4.3 g/dL (3.4-5.0) Urine Collection Type Unknown Urine Color Yellow Urine Clarity Clear Urine pH 8.0 Urine Specific [place] 1.025 Urine Protein Negative mg/dL (NEG-TRACE) Urine Glucose (UA) Negative mg/dL (NEG) Urine Ketones (Stick) Negative mg/dL (NEG) Urine Blood Negative (NEG) Urine Nitrite Negative (NEG) Urine Bilirubin Negative (NEG) Urine Urobilinogen Dipstick 1.0 mg/dL (0.2 mg/dL) Urine Leukocyte Esterase Negative (NEG) Urine RBC 3-5 /HPF (0-2) Urine WBC 5-10 /HPF (0-4) Urine Squamous Epithelial Cells Few /LPF Urine Bacteria 0 /HPF (0-FEW) Urine Mucus Slight /LPF Brief Hospital Course Mr Nance 28 yo male with no PMHx who presents with complaint of severe sore throat that started at about 10 PM. Patient states that he feels like his throat is closing up on him and he has been choking on a saliva. He indicates that he has had some vomiting as well and has had some hemoptysis. Patient does admit to feeling very anxious due to feeling like he is not able to breathe and cannot even swallow liquids. Patient also is noted to have fever. He denies any abdominal pain. He has 3 young children at home, works for the [employer], some sick contacts at work. He smokes a bit, drinks little, and occasionally uses MJ, but does not vape. His significant other notes he has vocal changes as well. CXR was clear in ED, however had fever 102.4F, HR 117, WBC of 22.5 and RR of 26/min. He improved only slightly after steroid administration and was called for admission for further treatment. CT neck confirms epiglottitis. Steroids, racemic epi, antibiotics. Consulted ID for further recommendations who agree with cefdinir, doxycycline, and prednisone on d/c with strict return instructions. Problem list Shortness of breath - epliglottis given his dysphagia and dysphonia. Needs prn racemic epinephrine, nebs, steroids, empiric antibiotics to cover for strep, h. influenza, etc. though this might be viral. Confirmed with CT neck stat to check for abscess. consulted ID Dysphagia - will check CT as above. Have HEALTH CARE TECHNICIAN evaluate, though this is likely epiglottitis Dysphonia - as above Sepsis - likely 2/2 epliglottitis, will have empiric antibiotics, fluids given Greater than 30 minutes spent on d/c Discharge Information Condition at Discharge: Improved Follow Up: Weeks (1) Disposition/Orders: D/C to Home Scheduled Cefdinir (Cefdinir) 300 Mg Capsule, 300 MG PO BID for Epiglottitis for 5 Days, #10 Prescribed by: BONITA GUIDO MD on 08/27/19 1042 Doxycycline Hyclate (Doxycycline Hyclate) 100 Mg Tablet, 100 MG PO BID for epiglottitis for 5 Days, #10 Prescribed by: BONITA GUIDO MD on 08/27/19 1042 Prednisone (Prednisone) 20 Mg Tablet, 20 MG PO DAILY for Epiglottitis for 5 Days, #5 Prescribed by: BONITA GUIDO MD on 08/27/19 1042 BONITA GUIDO MD Aug 27, 2019 22:52
== END 2019-08-27 11:00 | disposition home or self-care (01) | DRG 872 ==
LOC: ER 02:18 → 4 NORTH 05:36
PROVIDERS: ADMIT Family Medicine; ATTEND Family Medicine
DX: A41.9 Sepsis, unspecified organism (principal); J05.10 Acute epiglottitis without obstruction; R04.2 Hemoptysis; F17.210 Nicotine dependence, cigarettes, uncomplicated; J03.90 Acute tonsillitis, unspecified; Z82.49 Family history of ischemic heart disease and other diseases of the circulatory system; R49.0 Dysphonia
CPT/HCPCS: 36415; 70491; 71045; 80048; 80076; 81001; 85007; 85025; 86308; 86644; 86645; 87040; 87070; 87086; 87804; 87880; 94640; 96361; 96374; 96375; J0696; J1200; J1885; J2060; J2270; J2920; J2930; J3490; J7030; J7512; J7620; J7626; Q9967; 99285-25; G0378